=== PATIENT | female | born 1965 | race Caucasian/White ===

== ENCOUNTER 2019-06-25 19:14 | Emergency (ER) | payer BC ==
[2019-06-25 19:24] VITALS: BP 129/75; PULSE 89; TEMP 98.3; BMI 32.0
[2019-06-25] MEDS ORDERED: CYCLOBENZAPRINE HCL 10 MG TABLET (FP) PO ONE (19:50)
[2019-06-25] MEDS ORDERED: KETOROLAC TROMETHAMINE 30 MG/1 ML VIAL IM ONE (19:50)
--- NOTE | 2019-06-25 19:53 | PDOC ---
History of Present Illness - General Chief Complaint: Back Pain Stated Complaint: BACK PAIN Time Seen by Provider: 06/25/19 19:32 History Source: Patient Exam Limitations: No Limitations - History of Present Illness Initial Comments: 06/25/19 19:52 Patient is a 54-year-old female who presents to the ED with complaint of right low back and buttock pain that started yesterday. She states she was talking to her boyfriend when she turned away to walk away she felt a pain in her right low back region. She states the pain has gotten worse since then. She tried taking a meloxicam yesterday with little relief. She states that the pain is radiating down her leg and into her groin. She states she had sciatica many years ago and this feels similar. She denies any urinary or fecal incontinence or retention. She has a history of hypertension and hyperlipidemia which she is on medications for. She denies any allergies to medicines. Past History - Past Medical History Allergies/Adverse Reactions: Allergies Allergy/AdvReac Type Severity Reaction Status Date / Time No Known Allergies Allergy Verified 06/25/19 19:24 Home Medications: Ambulatory Orders Azithromycin [Zithromax Z-WINSTON (5 DAYS) -] 250 mg PO ASDIR #6 tablet 06/25/15 Lisinopril/Hydrochlorothiazide [Lisinopril-Hctz 20-25 mg Tab] 2 each PO DAILY Tramadol HCl 50 mg PO TID PRN #9 tablet MDD 3 06/25/19 COPD: No - Immunization History Immunization Up to Date: No - Psycho Social/Smoking Cessation Hx Smoking Status: Yes Smoking History: Current some day smoker Years of Tobacco Use: 25 Have you smoked in the past 12 months: Yes Number of Cigarettes Smoked Daily: 4 Information on smoking cessation initiated: No Hx Alcohol Use: No Drug/Substance Use Hx: No Substance Use Type: None Review of Systems - Review of Systems Comments:: 06/25/19 19:53 - Review of Systems Able to Perform ROS?: Yes Constitutional: No: Fever, Chills, Loss of Appetite, Night Sweats, Weakness Respiratory: No: Cough, Shortness of Breath, Wheezing, Sputum Production Cardiac (ROS): No: Chest Pain, Chest Tightness, Palpitations, Irregular Heart Beat, Edema ABD/GI: No: Nausea, Vomiting, Abdominal Pain, Diarrhea : No Dysuria, No Hematuria, No Frequency, No Urgency, No Vaginal Discharge/ Pain Musculoskeletal: No: Muscle Pain, Joint Pain, Muscle Weakness, Neck Pain, R low Back Pain Integumentary: No: Lesions, Rash Neurological: No: Headache, Numbness, Tingling, Weakness, Speech Difficulties *Physical Exam - Vital Signs Last Vital Signs Temp Pulse Resp BP Pulse Ox 98.3 F 89 18 129/75 98 06/25/19 19:20 06/25/19 19:20 06/25/19 19:20 06/25/19 19:20 06/25/19 19:20 - Physical Exam 06/25/19 19:54 - Physical Exam General Appearance: Nourished, Appropriately Dressed, No Distress Neck: Supple, No Lymphadenopathy (R), No Lymphadenopathy (L), No Rigidity, No Decreased range of motion Respiratory/Chest: Lungs Clear, Normal Breath Sounds. No Respiratory Distress, No Accessory Muscle Use Cardiovascular: Regular Rhythm, Regular Rate, S1, S2 Gastrointestinal/Abdominal: Normal Bowel Sounds, Soft. Non-tender, No Guarding , No Rebound, No Rigidity Musculoskeletal: Normal Inspection. Moderate tenderness to palpation over the right lumbar region and right buttock. Pain exacerbated with external rotation of the hip. Negative straight leg raise. Sensation intact to light touch to the bilateral lower extremities. 5/5 strength bilateral lower extremities. Extremity: Normal Capillary Refill, Normal Inspection Integumentary: Normal Color, Dry. 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 Plan: -Lumbar x-ray ordered -Toradol IM -Flexeril p.o. -Will reassess 06/25/19 20:26 The patient states that her pain has not improved at all since getting both the Flexeril and the Toradol. We will try giving her a tramadol in the ED. She states she gets very sick with Percocet and does not want to take that. 06/25/19 20:48 The patient states that she started to feel little bit better but she is eager to go home. We will send a prescription for tramadol to her pharmacy. She can continue to take her meloxicam that she had previously prescribed. She should follow-up with her primary doctor for further evaluation and treatment. We will give her referral to neurosurgery for further evaluation and treatment. Discharge - Discharge Information Problems reviewed: Yes Clinical Impression/Diagnosis: Right sided sciatica Condition: Stable Disposition: HOME - Additional Discharge Information Prescriptions: Tramadol HCl 50 mg PO TID PRN #9 tablet MDD 3 PRN Reason: Pain - Follow up/Referral Referrals: Latosha Woods MD [Primary Care Provider] - 2 Days Kevon Chang MD, FA[facility] [Staff Physician] - 1 week (If back symptoms persist you should be evaluated by a back surgeon. ) - Patient Discharge Instructions Patient Printed Discharge Instructions: DI for Back Pain With Sciatica Additional Instructions: Get plenty of rest and avoid lifting anything heavy. Take the tramadol as needed for severe pain. You can continue to take the meloxicam that you have at home. Follow-up with your primary doctor within 1 to 2 days for repeat evaluation. If your symptoms persist you may need to follow-up with a back surgeon and a referral has been given to you. - Post Discharge Activity Work/Back to School Note: Back to Work
[2019-06-25] MEDS ORDERED: CYCLOBENZAPRINE HCL 10 MG TABLET (FP) ONE (19:54)
[2019-06-25] MEDS ORDERED: KETOROLAC TROMETHAMINE 30 MG/1 ML VIAL ONE (19:54)
[2019-06-25] MEDS ORDERED: traMADol HCL 50 MG TABLET PO ONE (20:26)
[2019-06-25] MEDS ORDERED: traMADol HCL 50 MG TABLET ONE (20:28)
== END 2019-06-25 20:52 | disposition home or self-care (01) ==
LOC: JERFT 19:14
PROC: 3E0233Z Introduction of Anti-inflammatory into Muscle, Percutaneous Approach (ICD-10-PCS; principal; 2019-06-25)
DX: M54.42 Lumbago with sciatica, left side (principal); I10 Essential (primary) hypertension; E78.5 Hyperlipidemia, unspecified; F17.210 Nicotine dependence, cigarettes, uncomplicated
CPT/HCPCS: 72100-TC-FY; 99284-25

== ENCOUNTER 2021-01-02 16:35 | Emergency (ER) | payer BC ==
[2021-01-02 16:54] VITALS: TEMP 98.4; BMI 28.8
[2021-01-02] MEDS ORDERED: ACETAMINOPHEN 325 MG TABLET (FP) PO ONE (18:13)
[2021-01-02] MEDS ORDERED: ASPIRIN 81 MG CHEWABLE TABLETS PO ONE (18:35)
[2021-01-02] MEDS ORDERED: ASPIRIN 81 MG CHEWABLE TABLETS ONE (18:56)
[2021-01-02] MEDS ORDERED: ACETAMINOPHEN 325 MG TABLET (FP) ONE (18:56)
[2021-01-02 19:20] LABS: BASO % 0.4 % (0-2.0); EOS % 1.6 % (0-4.5); HEMATOCRIT 41.2 % (32.4-45.2); HEMOGLOBIN 14.3 GM/dL (10.7-15.3); LYMPH % 27.3 % (8-40); MCH 32.2 pg (25.7-33.7); MCHC 34.7 g/dl (32.0-36.0); MEAN CELL VOLUME 92.8 fl (80-96); MONO % 4.8 % (3.8-10.2); NEUT % 65.9 % (42.8-82.8); PLATELET COUNT 214 10^3/uL (134-434); RBC 4.44 M/mm3 (3.60-5.2); RDW 13.4 % (11.6-15.6); WHITE BLOOD COUNT 11.2 K/mm3 (4.0-10.0)
[2021-01-02 19:41] LABS: PROTHROMBIN TIME (PATIENT) 12.1 SEC (9.7-13.0)
[2021-01-02 19:43] LABS: ACTIVATED PTT 34.7 SECONDS (25.2-36.5)
[2021-01-02 19:44] LABS: CHLORIDE 102 mmol/L (98-107); SODIUM 138 mmol/L (136-145)
[2021-01-02 19:47] LABS: ALBUMIN 3.6 g/dl (3.4-5.0); ANION GAP 7 MMOL/L (8-16); BLOOD UREA NITROGEN 25.5 mg/dL (7-18); CALCIUM 9.5 mg/dL (8.5-10.1); CO2 30 mmol/L (21-32); GLUCOSE,RANDOM 80 mg/dL (74-106); MAGNESIUM 2.4 mg/dL (1.8-2.4)
[2021-01-02 19:50] LABS: CREATININE 0.7 mg/dL (0.55-1.3); SGOT/AST 28 U/L (15-37); SGPT/ALT 52 U/L (13-61)
[2021-01-02 19:52] LABS: BILIRUBIN,TOTAL 0.5 mg/dL (0.2-1); TOT PROT 7.2 g/dl (6.4-8.2)
[2021-01-02 19:53] LABS: ALK PHOS 78 U/L (45-117)
[2021-01-02] MEDS ORDERED: NITROGLYCERIN SUBLINGUAL 1/150 0.4 MG TAB SL ONE (21:19)
[2021-01-02] MEDS ORDERED: NITROGLYCERIN SUBLINGUAL 1/150 0.4 MG TAB ONE (21:51)
[2021-01-02] MEDS ORDERED: LIDOCAINE 5% TOPICAL PATCH TP ONE (22:05)
[2021-01-02] MEDS ORDERED: LIDOCAINE 5% TOPICAL PATCH ONE (22:08)
[2021-01-02 23:33] VITALS: BP 113/78; PULSE 74
== END 2021-01-03 00:30 | disposition left against medical advice (07) ==
LOC: JER 16:35
DX: R07.9 Chest pain, unspecified (principal); R91.1 Solitary pulmonary nodule
CPT/HCPCS: 36415; 71046-TC-FY; 71275-TC; 80053; 82550; 83735; 84484; 85025; 85379; 85610; 85730; 93005; 93010; 99285-25; C9803; U0003; U0005

== ENCOUNTER 2022-07-08 09:04 | Emergency (ER) | payer BC ==
[2022-07-08 09:24] VITALS: BP 158/91; PULSE 87; RESP 22; TEMP 97.4; BMI 25.0
[2022-07-08] MEDS ORDERED: ACETAMINOPHEN 500 MG TABLET (FP) PO ONE (10:02)
[2022-07-08] MEDS ORDERED: ACETAMINOPHEN 500 MG TABLET (FP) ONE (10:13)
[2022-07-08] MEDS ORDERED: KETOROLAC TROMETHAMINE 30 MG/1 ML VIAL IM ONE (11:03)
[2022-07-08] MEDS ORDERED: LIDOCAINE 5% TOPICAL PATCH TP ONE (11:03)
[2022-07-08] MEDS ORDERED: CYCLOBENZAPRINE HCL 10 MG TABLET (FP) PO ONE (11:03)
[2022-07-08] MEDS ORDERED: KETOROLAC TROMETHAMINE 30 MG/1 ML VIAL ONE (12:18)
[2022-07-08] MEDS ORDERED: LIDOCAINE 5% TOPICAL PATCH ONE (12:18)
[2022-07-08] MEDS ORDERED: CYCLOBENZAPRINE HCL 10 MG TABLET (FP) ONE (12:18)
[2022-07-08] MEDS ORDERED: LIDOCAINE PATCH REMOVAL MC SCH (22:00)
== END 2022-07-08 12:48 | disposition home or self-care (01) ==
LOC: JER 09:04
DX: S22.32XA Fracture of one rib, left side, initial encounter for closed fracture (principal); W10.9XXA Fall (on) (from) unspecified stairs and steps, initial encounter
CPT/HCPCS: 70450-TC; 71111-TC-FY; 93005; 93010; 99284-25

== ENCOUNTER 2022-10-16 21:43 | Inpatient (IN) | payer BC ==
[2022-10-16] MEDS ORDERED: ONDANSETRON 4 MG/2 ML VIAL IVPUSH ONE (22:34)
[2022-10-16] MEDS ORDERED: ACETAMINOPHEN 1000 MG/100 ML BAG IVPB ONE (22:34)
[2022-10-16] MEDS ORDERED: LACTATED RINGERS SOLUTION 1000 ML INFUS.BAG IV ONE ×2 (22:34→23:44)
[2022-10-16] MEDS ORDERED: FAMOTIDINE 20 MG/50 ML IVPB 20 MG/50 ML MG IVPB ONE ×2 (22:34→22:39)
[2022-10-16] MEDS ORDERED: ACETAMINOPHEN INJECTION 100 ML IVPB ONE (22:39)
[2022-10-16] MEDS ORDERED: ONDANSETRON 4 MG/2 ML VIAL ONE (22:39)
[2022-10-16 23:32] LABS: BASO % 0.2 % (0-2.0); EOS % 0.5 % (0-4.5); HEMATOCRIT 48.8 % (32.4-45.2); HEMOGLOBIN 17.1 GM/dL (10.7-15.3); LYMPH % 3.8 % (8-40); MCH 31.8 pg (25.7-33.7); MEAN CELL VOLUME 90.9 fl (80-96); MEAN PLT VOLUME 8.4 fl (7.5-11.1); MONO % 4.6 % (3.8-10.2); NEUT % 90.9 % (42.8-82.8); PLATELET COUNT 216 10^3/uL (134-434); RBC 5.36 M/mm3 (3.60-5.2); WHITE BLOOD COUNT 10.7 K/mm3 (4.0-10.0)
[2022-10-16 23:43] LABS: INR 1.01 (0.83-1.09); PROTHROMBIN TIME (PATIENT) 11.7 SEC (9.7-13.0)
[2022-10-16 23:46] LABS: ACTIVATED PTT 38.4 SECONDS (25.2-36.5)
[2022-10-16 23:52] LABS: POTASSIUM 3.9 mmol/L (3.5-5.1)
[2022-10-16 23:54] LABS: CALCIUM 10.4 mg/dL (8.5-10.1)
[2022-10-16 23:56] LABS: BLOOD UREA NITROGEN 20.2 mg/dL (7-18); MAGNESIUM 2.1 mg/dL (1.8-2.4)
[2022-10-16 23:58] LABS: CREATININE 0.8 mg/dL (0.55-1.3)
[2022-10-17] LABS: BILIRUBIN,TOTAL 0.7 mg/dL (0.2-1)
[2022-10-17] MEDS ORDERED: LACTATED RINGERS SOLUTION 1000 ML INFUS.BAG IV ONE (00:07)
[2022-10-17] MEDS ORDERED: morphine SULFATE 4 MG/ML VIAL IVPUSH ONE (01:10)
[2022-10-17] MEDS ORDERED: morphine SULFATE 4 MG/ML VIAL ONE ×2 (01:12→03:15)
[2022-10-17] MEDS ORDERED: morphine CARPU-JECT 4 MG/1 ML DISP.SYRIN IVPUSH ONE (02:15)
[2022-10-17] MEDS ORDERED: SODIUM CHLORIDE 1,000 ML IV SCH (05:30)
[2022-10-17 07:39] LABS: HEMATOCRIT 43.4 % (32.4-45.2); HEMOGLOBIN 14.5 GM/dL (10.7-15.3); MCH 31.2 pg (25.7-33.7); MCHC 33.4 g/dl (32.0-36.0); MEAN CELL VOLUME 93.3 fl (80-96); MEAN PLT VOLUME 8.8 fl (7.5-11.1); PLATELET COUNT 163 10^3/uL (134-434); RBC 4.65 M/mm3 (3.60-5.2); RDW 12.9 % (11.6-15.6); WHITE BLOOD COUNT 7.9 K/mm3 (4.0-10.0)
[2022-10-17] MEDS: SODIUM CHLORIDE 1,000 ML IV SCH (08:02)
[2022-10-17 08:03] LABS: POTASSIUM 3.8 mmol/L (3.5-5.1)
[2022-10-17 08:07] LABS: MAGNESIUM 1.8 mg/dL (1.8-2.4)
[2022-10-17 08:10] LABS: CREATININE 0.7 mg/dL (0.55-1.3); PHOSPHOROUS 2.7 mg/dL (2.5-4.9)
[2022-10-17 08:11] LABS: BILIRUBIN,TOTAL 1.3 mg/dL (0.2-1); TOT PROT 6.1 g/dl (6.4-8.2)
[2022-10-17 08:18] LABS: ALBUMIN 3.1 g/dl (3.4-5.0); CALCIUM 8.7 mg/dL (8.5-10.1)
[2022-10-17] MEDS: METOCLOPRAMIDE HCL INJECTION 10 MG/2 ML VIAL IVPUSH PRN ×2 (09:14→16:08)
[2022-10-17] MEDS ORDERED: PATIENT'S OWN MEDICATION (NON-FORMULARY) (Lisinopril/Hydrochlorothiazide [Lisinopril-Hctz PO SCH (10:00)
[2022-10-17] MEDS ORDERED: HYDROCHLOROTHIAZIDE 12.5 MG CAPSULE (FP) PO SCH (10:00)
[2022-10-17] MEDS: ENOXAPARIN NA (PORCINE) 40 MG/0.4 ML DISP.SYRIN SQ SCH (10:03)
[2022-10-17] MEDS: SIMETHICONE 80 MG TAB.CHEW (FP) PO SCH ×5 (10:17→22:06)
[2022-10-17] MEDS: LACTATED RINGERS SOLUTION 1,000 ML/1,000 ML INFUS.BAG IV SCH ×2 (10:52→20:39)
[2022-10-17] MEDS: LISINOPRIL 20 MG TABLET PO SCH (11:10)
[2022-10-17] MEDS ORDERED: IBUPROFEN 400 MG TABLET (FP) PO ONE (18:41)
[2022-10-18] MEDS: METOCLOPRAMIDE HCL INJECTION 10 MG/2 ML VIAL IVPUSH PRN ×3 (01:21→21:52)
[2022-10-18] MEDS: ENOXAPARIN NA (PORCINE) 40 MG/0.4 ML DISP.SYRIN SQ SCH (10:09)
[2022-10-18] MEDS: SIMETHICONE 80 MG TAB.CHEW (FP) PO SCH ×4 (10:09→21:34)
[2022-10-18] MEDS: LISINOPRIL 20 MG TABLET PO SCH (10:09)
[2022-10-18] MEDS: LACTATED RINGERS SOLUTION 1,000 ML/1,000 ML INFUS.BAG IV SCH (10:10)
[2022-10-18] MEDS ORDERED: CIPROFLOXACIN 400 MG/D5W 400 MG/200 ML IVPB IVPB ONE (10:27)
[2022-10-18] MEDS ORDERED: PIPERACILLIN/TAZOB 3.375 GM 3.375 GM in DEXTROSE 5%-WATER - 50 ML IVPB SCH (10:30)
[2022-10-18] MEDS: BISMUTH SUBSALICYLATE 262 MG/15 ML BTL PO SCH (12:04)
[2022-10-18 12:14] LABS: ALBUMIN 2.6 g/dl (3.4-5.0); ALK PHOS 111 U/L (45-117); ANION GAP 10 MMOL/L (8-16); BILIRUBIN,TOTAL 0.4 mg/dL (0.2-1); BLOOD UREA NITROGEN 15.1 mg/dL (7-18); CALCIUM 7.8 mg/dL (8.5-10.1); CHLORIDE 108 mmol/L (98-107); CO2 24 mmol/L (21-32); CREATININE 0.6 mg/dL (0.55-1.3); GLUCOSE,RANDOM 89 mg/dL (74-106); POTASSIUM 2.8 mmol/L (3.5-5.1); SGOT/AST 118 U/L (15-37); SGPT/ALT 241 U/L (13-61); SODIUM 142 mmol/L (136-145); TOT PROT 5.4 g/dl (6.4-8.2)
[2022-10-18] MEDS: KCL 10 MEQ IVPB 10 MEQ/100 ML INFUS.BAG IVPB SCH ×3 (12:48→14:35)
[2022-10-18] MEDS ORDERED: POTASSIUM CHLORIDE TABS 20 MEQ TABLET.ER (FP) PO ONE ×2 (13:00→14:30)
[2022-10-18] MEDS ORDERED: POTASSIUM CHLORIDE TABS 10 MEQ TABLET.ER (FP) PO ONE (13:00)
[2022-10-18 15:45] VITALS: BMI 27.0
[2022-10-18] MEDS ORDERED: MAGNESIUM SULF 50% (8.12 MEQ/2 ML-1 GM VIAL) IVPB ONE (15:48)
[2022-10-18] MEDS ORDERED: POTASSIUM CHLORIDE ORAL LIQUID 20 MEQ/15 ML PO ONE (20:00)
[2022-10-18] MEDS: SODIUM CHLORIDE 0.45%/POT 20 MEQ/1,000 ML INFUS.BAG IV SCH (20:00)
[2022-10-18] MEDS: SODIUM CHLORIDE 1,000 ML IV SCH (20:02)
[2022-10-18 22:01] LABS: EPI CELLS 3 /uL (0-25.1); HYALINE CASTS 1 /uL (0-3.1); PH,URINE 5.5 (5.0-8.0); URINE APPEARANCE CLOUDY; URINE BACTERIA >9,000 /uL (0-1359); URINE BILIRUBIN NEGATIVE (NEGATIVE); URINE COLOR YELLOW; URINE GLUCOSE (UA) NEGATIVE (NEGATIVE); URINE KETONE NEGATIVE (NEGATIVE); URINE LEUK ESTERASE 3+ (NEGATIVE); URINE NITRITE POSITIVE (NEGATIVE); URINE PROTEIN NEGATIVE (NEGATIVE); URINE RBC 6 /uL (0-23.9); URINE UROBILINOGEN 0.2 mg/dL (0.2-1.0); URINE WBC 628 /uL (0-25.8)
[2022-10-19] MEDS: SODIUM CHLORIDE 0.45%/POT 20 MEQ/1,000 ML INFUS.BAG IV SCH ×2 (08:55→17:49)
[2022-10-19 09:22] LABS: HEMATOCRIT 37.7 % (32.4-45.2); HEMOGLOBIN 13.4 GM/dL (10.7-15.3); MEAN CELL VOLUME 90.7 fl (80-96); RBC 4.16 M/mm3 (3.60-5.2); WHITE BLOOD COUNT 6.8 K/mm3 (4.0-10.0)
[2022-10-19 09:23] LABS: BASO % 0.2 % (0-2.0); EOS % 0.5 % (0-4.5); LYMPH % 17.2 % (8-40); MCH 32.3 pg (25.7-33.7); MCHC 35.6 g/dl (32.0-36.0); MEAN PLT VOLUME 8.1 fl (7.5-11.1); MONO % 7.9 % (3.8-10.2); NEUT % 74.2 % (42.8-82.8); PLATELET COUNT 134 10^3/uL (134-434)
[2022-10-19 09:24] LABS: POTASSIUM 3.8 mmol/L (3.5-5.1)
[2022-10-19 09:40] LABS: ALBUMIN 2.6 g/dl (3.4-5.0); BLOOD UREA NITROGEN 15.2 mg/dL (7-18); CALCIUM 7.8 mg/dL (8.5-10.1)
[2022-10-19 09:42] LABS: PHOSPHOROUS 1.7 mg/dL (2.5-4.9)
[2022-10-19 09:43] LABS: CREATININE 0.5 mg/dL (0.55-1.3)
[2022-10-19 09:44] LABS: BILIRUBIN,TOTAL 0.5 mg/dL (0.2-1); TOT PROT 5.4 g/dl (6.4-8.2)
[2022-10-19] MEDS ORDERED: NAPH,MB-DB/K PH,MBDB POWDER PACKET PO ONE (09:50)
[2022-10-19] MEDS: LISINOPRIL 20 MG TABLET PO SCH (10:08)
[2022-10-19] MEDS: ENOXAPARIN NA (PORCINE) 40 MG/0.4 ML DISP.SYRIN SQ SCH ×2 (10:08→10:20)
[2022-10-19] MEDS: SIMETHICONE 80 MG TAB.CHEW (FP) PO SCH (10:09)
[2022-10-19] MEDS: BISMUTH SUBSALICYLATE 262 MG/15 ML BTL PO SCH (13:00)
[2022-10-19] MEDS: POTASSIUM PHOSPHATE 30 MM in SODIUM CHLORIDE 500 ML IVPB ONE ×3 (17:50→21:28)
[2022-10-20] MEDS: SODIUM CHLORIDE 0.45%/POT 20 MEQ/1,000 ML INFUS.BAG IV SCH (00:28)
[2022-10-20] MEDS: ENOXAPARIN NA (PORCINE) 40 MG/0.4 ML DISP.SYRIN SQ SCH (10:40)
[2022-10-20] MEDS: LISINOPRIL 20 MG TABLET PO SCH (10:40)
[2022-10-20 14:18] VITALS: PULSE 60; RESP 20
[2022-10-20 14:44] VITALS: BP 123/64; TEMP 98
== END 2022-10-20 16:00 | disposition home or self-care (01) | DRG 392 ==
LOC: JER 21:43 → JERBED 10-17 00:10 → J5S 10-17 05:40 → J6S 10-18 00:34
PROVIDERS: ADMIT Internal Medicine; ATTEND Internal Medicine
DX: A08.0 Rotaviral enteritis (principal); I10 Essential (primary) hypertension; E78.00 Pure hypercholesterolemia, unspecified; I25.2 Old myocardial infarction; M54.9 Dorsalgia, unspecified; R11.2 Nausea with vomiting, unspecified; R79.89 Other specified abnormal findings of blood chemistry; E87.6 Hypokalemia
CPT/HCPCS: 36415; 74177-TC; 76705-TC; 80053; 81003; 82272; 82550; 83605; 83690; 83735; 84100; 84478; 85025; 85027; 85610; 85730; 86140; 86704; 86708; 86709; 86803; 87040; 87045; 87046; 87209; 87324; 87340; 87425; 87449; 87517; 87635; 87798; 87804; 93005; 93010; 99285-25; J3480; Q9967